=== PATIENT | female | born 1975 | race Hispanic/Latino ===

== ENCOUNTER 2021-10-15 10:37 | Outpatient (CLI) | payer OTHER ==
--- NOTE | 2021-10-15 12:12 | XRay Report ---
XR knee BILAT 1-2V INDICATION / CLINICAL INFORMATION: BILATERAL KNEE PAIN. COMPARISON: None available. FINDINGS: BONES/JOINT(S): No acute fracture or subluxation. Moderate tricompartmental osteoarthritis in both kn ees. No focal bone erosions or focal osteopenia to suggest inflammatory arthropathy. SOFT TISSUES: No significant abnormality. ADDITIONAL FINDINGS: None. Signer Name: Juanpablo Denny MD Signed: 10/15/2021 12:07 PM Workstation Name: [employer]
== END 2021-10-15 10:38 | disposition home or self-care (01) ==
LOC: XRAY 10:37
PROVIDERS: ATTEND Internal Medicine
DX: M17.0 Bilateral primary osteoarthritis of knee (principal)